=== PATIENT | female | born 1995 | race Caucasian/White ===

== ENCOUNTER 2016-09-08 19:55 | Emergency (ER) | payer MEDICAID ==
[~2016-09-08] VITALS: Ht 170.2 cm; Wt 93.6 kg
[2016-09-08 20:17] VITALS: Ht 170.2 cm; Wt 93.6 kg
[2016-09-08] MEDS ORDERED: BEN50 PO (20:50)
--- NOTE | 2016-09-08 20:55 | ERD ---
ER Documentation Chief Complaint Date/Time DATE: 09/08/16 TIME: 20:52 Chief Complaint numbness to tongue after drinking coffee that has resolved HPI 19-year-old female presents here in emergency department for symptoms of tingling sensation and numbness in the tongue area after drinking coffee today. After a few minutes, the sensation resolved, patient feels much better now. Patient does not have any lip swelling, tongue swelling or stridor. Patient does not have any shortness breath or wheezing. Patient does not have any rash. Patient does not have any numbness or tingling other parts of the body. At this time, patient does not have any other symptoms. After drinking the coffee, she started to have the symptoms by the symptoms resolved immediately afterwards. ROS All systems reviewed and are negative except as per history of present illness. Medications Home Meds Active Scripts Diphenhydramine Hcl* (Benadryl*) 50 Mg Cap, 50 MG PO Q6H Y for ITCHING/RASH, # 30 CAP Prov:JASMEET LAINEZ NP 09/08/16 Allergies Allergies: Coded Allergies: No Known Allergy (Unverified , 10/05/11) PMhx/Soc History of Surgery: Yes (CLEFT LIP/PALATE) Anesthesia Reaction: No Hx Neurological Disorder: No Hx Respiratory Disorders: Yes (ASTHMA) Hx Cardiac Disorders: No Hx Psychiatric Problems: No Hx Miscellaneous Medical Probl: No Hx Alcohol Use: No Hx Substance Use: No Hx Tobacco Use: No FmHx Family History: No coronary disease, No diabetes, No other Physical Exam Vitals Vital Signs Date Time Temp Pulse Resp B/P Pulse Ox O2 Delivery O2 Flow Rate FiO2 09/08/16 20:17 99.3 90 18 114/76 99 Physical Exam GENERAL: The patient is well developed and appropriate for usual state of health, in no apparent distress. HEENT: Atraumatic. Ears: Normal tympanic membrane, no erythema or bulging. No ear canal swelling. No ear discharge. Nose: normal nasal turbinates, no erythema or swelling. Normal nasal discharge. Throat: oropharynx clear. No tonsillar swelling or tonsillar exudates. No lymphadenopathy. No lip swelling, tongue swelling or stridor noted. CHEST: Clear to auscultation bilaterally. There are no rales, wheezes or rhonchi. HEART: Regular rate and rhythm. No murmurs, clicks, rubs or gallops. No S3 or S4. ABDOMEN: Soft, nontender and nondistended. Good bowel sounds. No rebound or guarding. No gross peritonitis. No gross organomegaly or masses. No Hernandez sign or McBurney point tenderness. BACK: No midline or flank tenderness. EXTREMITIES: Equal pulses bilaterally. There is no peripheral clubbing, cyanosis or edema. No focal swelling or erythema. Full range of motion. Grossly neurovascularly intact. NEURO: Alert and oriented. Cranial nerves 2-12 intact. Motor strength in all 4 extremities with 5/5 strength. Sensation grossly intact. Normal speech and gait. SKIN: There is no apparent rash or petechia. The skin is warm and dry. HEMATOLOGIC AND LYMPHATIC: There is no evidence of excessive bruising or lymphedema. No gross cervical, axillary, or inguinal lymphadenopathy. Procedures/MDM Medical decision making: Patient symptoms are nonspecific at this time, possibly reaction to the coffee, can be also from the temperature may have caused tingling sensation in the time. Patient's symptoms resolved immediately afterwards. At this time, patient does not have any other symptoms. No symptoms of anaphylactic shock. No angioedema noted. No oral airway obstruction noted. Patient was given a procedure for Benadryl incase she starts to have swelling or itching, is advised to follow with primary care doctor in 2-3 days for reevaluation symptoms. Patient was advised to return to emergency department for any worsening symptoms. Departure Diagnosis: Primary Impression: Caffeine adverse reaction Encounter type: initial encounter Qualified Code: T43.615A - Caffeine adverse reaction, initial encounter Condition: Stable Patient Instructions: Medical Screening Exam, Nonurgent Referrals: [facility] () Usted se gao hecho un examen mdico de control que le indica que no est en oriana condicin que requiera tratamiento urgente en el Departamento de Emergencia. Un estudio ms profundo y el tratamiento de scanlon condicin pueden esperar sin ningn riesgo hasta que usted sea atendida/o en el consultorio de scanlon mdico o oriana cl harry. Es responsabilidad suya arreglar oriana hanna para el seguimiento del nate. MANEJO DE CONDICIONES NO URGENTES EN EL FUTURO 1) Si usted tiene un mdico de atencin primaria: Usted debera llamar a scanlon mdico de atencin primaria antes de venir al departamento de emergencia. Despus de las horas de consultorio, scanlon doctor o scanlon asociado/a est disponible por telfono. El mdico o enfermero de terry en el servicio telefnico puede asesorarle por angie medio para atender el problema, o nate contrario se puede programar oriana hanna. 2) Si usted no tiene un mdico de atencin primaria: Llame al mdico o clnica de referencia que aparece abajo sylwia las horas de consultorio para hacer oriana hanna para que le vean. CLINICAS: [facility] [phone] [facility] [phone] [facility] [phone] [address] [facility] [facility] [phone] [address] [facility] [facility] [phone] [address] [facility]. [phone] [address] [facility]. [facility] () Usted se gao hecho un examen mdico de control que le indica que no est en oriana condicin que requiera tratamiento urgente en el Departamento de Emergencia. Un estudio ms profundo y el tratamiento de scanlon condicin pueden esperar sin ningn riesgo hasta que usted sea atendida/o en el consultorio de scanlon mdico o oriana cl harry. Es responsabilidad suya arreglar oriana hanna para el seguimiento del nate. MANEJO DE CONDICIONES NO URGENTES EN EL FUTURO 1) Si usted tiene un mdico de atencin primaria: Usted debera llamar a scanlon mdico de atencin primaria antes de venir al departamento de emergencia. Despus de las horas de consultorio, scanlon doctor o scanlon asociado/a est disponible por telfono. El mdico o enfermero de terry en el servicio telefnico puede asesorarle por angie medio para atender el problema, o nate contrario se puede programar oriana hanna. 2) Si usted no tiene un mdico de atencin primaria: Llame al mdico o condado institucions de referencia que aparece abajo sylwia las horas de consultorio para hacer oriana hanna para que le vean. SI USTED NO PUEDE PAGAR PARA RIZWAN UN MEDICO puede ir a: [facility] [address] [place] [address] [facility] [address] [place], [place] [id number] [place] [address]+[facility] [address] [place] [address] [facility] [address] [place], [place] [id number] CUISIA,JASMEET Donohue NP Sep 08, 2016 20:55
== END 2016-09-08 20:12 | disposition home or self-care (01) ==
LOC: FTE 19:55 → E/R 20:12
DX: R20.0 Anesthesia of skin (principal); T43.615A Adverse effect of caffeine, initial encounter; J45.909 Unspecified asthma, uncomplicated
CPT/HCPCS: 99283

== ENCOUNTER 2017-12-16 14:08 | Emergency (ER) | END 2017-12-16 15:50 | disposition home or self-care (01) ==